=== PATIENT | female | born 2000 | race Caucasian/White ===

== ENCOUNTER 2021-09-22 07:10 | Emergency (ER) | payer MEDICAID, SELFPAY ==
[2021-09-22 07:37] VITALS: BP 118/71; PULSE 67; RESP 14; TEMP 36.4; O2SAT 98; BMI 25.2
--- NOTE | 2021-09-22 07:49 | ED.SKABFB ---
HPI - Skin/Abscess/Foreign Bdy General Time Seen by Provider: 07:49 Date Seen: 09/22/21 Chief complaint: Skin/Abscess/Foreign Body Stated complaint: RASH-ARMS Time Seen by Provider: 09/22/21 07:49 Source: patient Mode of arrival: ambulatory Limitations: no limitations and altered mental status History of Present Illness HPI narrative: Patient is a 21-year-old female presents here with an itchy rash that started 2 weeks ago, it spread on her hands and her feet, stays blow her elbows and her knees. It is on the extensor surfaces but sparing the palms. She has been scratching it, not appearing anywhere else like on her face. She has had no exposure or anything else, she has not been creams on, she has not seen her regular physician. She has had no fevers chills or sweats, she has otherwise felt well. complaint: rash Onset (ago): week(s) Tetanus up to date: yes Location: L hand, R hand, LLE and RLE Severity: mild Quality: pruritic Pain Consistency: constant Relieving factors: none Exacerbating factors: none Context: none Associated symptoms: denies other symptoms Treatments prior to arrival: none Related Data Home Medications Medication Instructions Recorded Confirmed No Known Home Medications 09/22/21 09/22/21 Allergies Allergy/AdvReac Type Severity Reaction Status Date / Time No Known Drug Allergies Allergy Verified 09/22/21 07:41 Review of Systems Status of ROS: Reports: 6 or more systems reviewed and unremarkable except as noted in History and below Exam Const: Vital Signs, click to edit/add: Vital Signs - 24 hr 09/22/21 07:37 Temperature 97.6 F Pulse Rate [Right Pulse Oximeter] 67 Respiratory Rate 14 Blood Pressure [Ri ght Upper Arm] 118/71 Pulse Oximetry 98 Documenting provider has reviewed patient's vital signs: yes Common normals: no apparent distress, average body habitus, oriented x3, no limitations, healthy appearing, alert and well nourished Extremity: Common normals: full ROM, normal capillary refill, no joint enlargement, no clubbing, cyanosis or edema, no calf tenderness and no pedal edema Neuro: Common normals: oriented x3 Sensorium/orientation: alert Skin: Common normals: skin turgor normal, no jaundice, no petechiae and no mottling Narrative: On both the hands, extensor surfaces, upper forearm, and on her legs, there is an area of redness, the rashes in various stages of healing, there appears to be no pox like lesions are indication of monkey pox, she has been itching it, wonder if she is really contaminating herself. This looks like either eczema, or possibly impetigo type situation. General skin exam: turgor normal and crusts Rashes: rashes noted Course Vital Signs Vital signs: Initial Vital Signs Temperature 97.6 F 09/22/21 07:37 Temperature Source Temporal Artery Scan 09/22/21 07:37 Pulse Rate 67 09/22/21 07:37 Respiratory Rate 14 09/22/21 07:37 Blood Pressure 118/71 09/22/21 07:37 Blood Pressure Mean 86 09/22/21 07:37 Blood Pressure Position Sitting 09/22/21 07:37 Pulse Oximetry 98 09/22/21 07:37 Oxygen Delivery Method 09/22/21 07:37 Vital Signs Temperature 97.6 F 09/22/21 07:37 Pulse Rate 67 09/22/21 07:37 Respiratory Rate 14 09/22/21 07:37 Blood Pressure 118/71 09/22/21 07:37 Pulse Oximetry 98 09/22/21 07:37 Temperature 97.6 F 09/22/21 07:37 Pulse Rate 67 09/22/21 07:37 Respiratory Rate 14 09/22/21 07:37 Blood Pressure 118/71 09/22/21 07:37 Pulse Oximetry 98 09/22/21 07:37 MDM - Skin/Abscess/Foreign Bdy MDM Narrative Medical decision making narrative: This appears to be a rash of more associated with the itching, I would recommend that she alternates bacitracin cream, with 1% hydrocortisone on the areas, this fails to give her relief in does not clear up over the next 2 weeks, then I would recommend her following up with either Dermatology or Primary Care for Differential Diagnosis Differential diagnosis: Likely abscess of skin or subcutaneous tissue, viral exanthem, dermatophytosis, urticaria, herpes zoster, allergic reaction to drug, cellulitis, eczema, insect bites, impetigo and contact dermatitis Medical Records Attestation: I reviewed the patient's medical records. Discharge Plan Discharge Clinical Impression: Eczema, Rash Patient Disposition: Home, Self-Care Condition: Stable Instructions: Acute Rash (ED), Dermatitis (ED) Additional Instructions: I would recommend use of bacitracin cream t.i.d. to the area, alternating with hydrocortisone 1%, twice daily also, try not to itch this as I think he might be read contaminating in different areas by itching it. If this fails to give you relief then I would recommend follow-up with primary care or Dermatology. Prescriptions: No Action No Known Home Medications 0RF Follow Up/Referrals: Magaly Morejon MD [Primary Care Provider] - Stand Alone Forms: [employer] Info Instructions
== END 2021-09-22 08:05 | disposition home or self-care (01) ==
PROVIDERS: Emergency Provider Family Medicine; PCP Family Medicine
DX: R21 Rash and other nonspecific skin eruption (principal)
CPT/HCPCS: 99282